=== PATIENT | female | born 1995 | race Caucasian/White ===

== ENCOUNTER → 2019-04-24 | Outpatient (CLI) | payer OTHER ==
--- NOTE | 2019-04-24 10:55 | RADIOLOGY REPORT (SQ) ---
EXAM DESCRIPTION: U/S THYROID/SFT TISS HD NECK COMPLETED DATE/TIME: 04/24/2019 10:29 am REASON FOR STUDY: R59.1 GENERALIZED ENLARGED LYMPH NODES R59.1 GENERALIZED ENLARGED LYMPH NODES COMPARISON: None. TECHNIQUE: Dynamic and static ledezma-scale images acquired of the thyroid gland. Selected additional c olor/power Doppler images recorded. All images stored to PACS. LIMITATIONS: None. FINDINGS: RIGHT LOBE: Normal size, 4 x 1.8 x 0.9 cm in size. Homogeneous echotexture. No cystic or solid masses. LEFT LOBE: Normal size 4.1 x 1.9 x 1.3 cm in size. Homogeneous echotexture. No cystic or solid mass es. ISTHMUS: Normal size. Homogeneous echotexture. No cystic or solid masses. OTHER: Patient indicated a palpable abnormality along the left sub mandibular region. A hypoechoic w ell-circumscribed lymph node with central hilar fat is present, 1.4 x 0.6 cm in size. IMPRESSION: NORMAL THYROID ULTRASOUND. 1.4 X 0.6 CM LEFT SUBMANDIBULAR LYMPH NODE TECHNICAL DOCUMENTATION: JOB ID: [id number] [employer]- All Rights Reserved Reading location - IP/workstation name: [email or web address]
== END ==
LOC: RAD 09:48
PROVIDERS: ATTEND Internal Medicine
DX: R59.1 Generalized enlarged lymph nodes (principal)
CPT/HCPCS: 76536